=== PATIENT | female | born 1955 | race Caucasian/White ===

== ENCOUNTER 2023-12-31 17:29 | Emergency (ER) | payer MEDICARE, OTHER ==
[~2023-12-31 17:29] MED LIST: Iopamidol 370 76% 100 ML VIAL ONE
[2023-12-31] MEDS ORDERED: Morphine 4 MG/ML VIAL ONE ×2 (17:52→23:47)
[2023-12-31] MEDS ORDERED: Dicyclomine 20 MG/2 ML VIAL ONE (17:53)
[2023-12-31] MEDS ORDERED: Ondansetron PF 4 MG/2 ML Vial ONE (17:53)
[2023-12-31 17:56] LABS: #Lymphocytes 0.2 thou/uL (1.20-3.40); #Monocytes 0.1 thou/uL (0.11-0.59); #Neutrophils 1.2 thou/uL (1.40-6.50); %Basophils 0.6 % (0.0-1.0); %Eosinophils 0.3 % (0.0-10.0); %Lymphocytes 15.4 % (21.0-51.0); %Monocytes 8.3 % (0.0-10.0); %Neutrophils 75.3 % (42.0-75.0); Hematocrit 36.3 % (36.0-47.0); Hemoglobin 11.7 g/dL (12.0-16.0); Mean Corpuscular HGB CONC 32.1 g/dL (32.0-36.0); Mean Corpuscular Hemoglobin 26.5 pg (27.0-31.0); Mean Corpuscular Volume 82.4 fl (78.0-98.0); Mean Platelet Volume 6.5 fL (7.4-10.4); Platelet Count 63 10x3/uL (130-400); RBC Distribution Width 14.7 % (11.5-14.5); Reflex for Review?? YES; White Blood Cell (WBC) Count 1.6 10x3/uL (4.8-10.8)
[2023-12-31 18:14] LABS: ALT (SGPT) 12 U/L (8-55); AST (SGOT) 26 U/L (5-34); Albumin 2.8 g/dL (3.4-4.8); Alkaline Phosphatase 57 U/L (40-110); Anion Gap 13 mmol/L (10-20); BUN (Urea Nitrogen) 16 mg/dL (9.8-20.1); Bilirubin, Total 1.9 mg/dL (0.2-1.2); Calc. Creatinine Clearance 0 mL/min (70-130); Calcium 8.1 mg/dL (7.8-10.44); Carbon Dioxide 21 mmol/L (23-31); Chloride 104 mmol/L (98-107); Estimated GFR 50; Globulin 3.2 g/dL (2.4-3.5); Glucose 178 mg/dL (80-115); Lipase 50 U/L (8-78); Sodium 135 mmol/L (136-145)
[2023-12-31 18:17] LABS: Troponin I Less than 0.010 ng/mL (< 0.028)
[2023-12-31 18:29] LABS: Platelet Adequacy Comment Appears Decreased
[2023-12-31] MEDS ORDERED: Vancomycin 1 GM VIAL ONE ×2 (18:38→18:39)
[2023-12-31] MEDS ORDERED: Sodium Chloride 0.9% 100 ML ONE (18:38)
[2023-12-31] MEDS ORDERED: Piperacillin/Tazobactam 4.5 GM VIAL ONE (18:38)
[2023-12-31 20:32] LABS: Lactic Acid 3.1 mmol/L (0.5-2.2)
[2023-12-31 21:47] LABS: Bilirubin Negative (Negative); Blood, Urine Negative (Negative); Clarity Clear (Clear); Glucose, Urine (Dipstick) Negative (Negative); Ketone, Urine Negative (Negative); Leukocyte Trace (Negative); Nitrite Positive (Negative); Protein, Urine (Dipstick) Negative (Neg-Trace); pH, Urine 5.5 (5.0-9.0)
[2023-12-31 21:48] LABS: Specific Gravity, Urine 1.039 (1.002-1.036)
[2023-12-31 21:59] LABS: RBC/HPF None Seen HPF (0-3)
[2023-12-31 22:01] LABS: Bacteria/HPF Rare-Few HPF (None Seen); CAUTI Indications for Culture Fever or rigors; Renal Epithelial 0-3 HPF (None Seen); Squamous Epithelial 0-3 HPF (0-3); WBC/HPF 0-3 HPF (0-3)
[2023-12-31 22:02] LABS: Urine Culture Reflex No No
[2023-12-31] MEDS ORDERED: Potassium Chloride 20 MEQ TAB ONE (22:28)
[2023-12-31] MEDS ORDERED: Potassium Chloride 20 MEQ (100 mL) BAG ONE (22:28)
[2023-12-31 22:57] LABS: INR-International Normal Ratio 1.1; PTT 31.3 sec (22.9-36.1); Prothrombin Time 14.3 sec (12.0-14.7)
[2023-12-31 23:05] LABS: Magnesium 1.6 mg/dL (1.6-2.6)
[2023-12-31] MEDS ORDERED: Nicotine 14 MG PATCH TOP SCH (23:30)
== END 2023-12-31 23:59 | disposition critical access hospital (66) ==
LOC: BURERS 17:29
DX: A41.9 Sepsis, unspecified organism (principal); R19.7 Diarrhea, unspecified; E87.6 Hypokalemia; R59.0 Localized enlarged lymph nodes; E86.0 Dehydration; J44.9 Chronic obstructive pulmonary disease, unspecified; F17.210 Nicotine dependence, cigarettes, uncomplicated
CPT/HCPCS: 36415; 71045; 74177; 80053; 81001; 83605; 83690; 83735; 84484; 85025; 85060; 85610; 85730; 87040; 93005; 96361; 96372; 96374; 96375; 96376; J2270; J2405; J2543; J3370; J3480; J3490; Q9967